=== PATIENT | male | born 1960 | race Caucasian/White ===

== ENCOUNTER 2024-11-17 15:27 | Outpatient (CLI) | payer BC, SELFPAY ==
--- NOTE | ~2024-11-17 | MR_ITS ---
EXAMINATION: MR brain/brain stem wo con DATE: 11/17/2024 16:00 INDICATION: Dizziness after neck extension. TECHNIQUE: Magnetic resonance imaging (MRI) of the brain and brainstem was performed without intraven ous contrast. Sequences included sagittal and axial T1-weighted SE, axial diffusion-weighted FS SE, a xial 3D SWAN, axial T2-weighted FLAIR, and axial T2-weighted FSE. Apparent diffusion coefficient (ADC ) maps were created. COMPARISON: None. FINDINGS: There are no areas of restricted diffusion to suggest acute infarction. No intracranial hemorrhage or abnormal intracranial mass lesion. Mild scattered nonspecific increased T2-weighted signal intensity in the cerebral white matter, predominantly involving the deep and periventricular white matter whic h is within normal limits for age and likely sequela of chronic small vessel ischemic disease. There is linear signal loss in the from peripheral to the paraventricular region of the right right occipit al lobe on the susceptibility weighted images which suggests flow artifact along a developmental veno us anomaly. There are no intraparenchymal signal abnormalities seen on the other pulse sequences. The ventricles are symmetric and normal in size. There are no abnormal extra-axial fluid collections. Fl ow voids are seen in the cerebral arteries on the T2-weighted sequences consistent with their expecte d patency. Visualized orbits and soft tissues are unremarkable. Mild mucoperiosteal thickening at the bilateral ethmoid sinuses. IMPRESSION: 1. No acute intracranial process. 2. A couple tracts of linear low signal on susceptibility weighted imaging extending across the right parieto-occipital region suggestive of flow within a developmental venous anomaly. 3. Mild scattered nonspecific periventricular predominant white matter T2 hyperintensity which is wit hin normal limits for age and likely sequela of chronic small vessel ischemic disease. Reviewed, dictated and finalized at location A. IMPRESSION: 1. No acute intracranial process. 2. A couple tracts of linear low signal on susceptibility weighted imaging exte nding across the right parieto-occipital region suggestive of flow within a dev elopmental venous anomaly. 3. Mild scattered nonspecific periventricular predominant white matter T2 hyper intensity which is within normal limits for age and likely sequela of chronic s mall vessel ischemic disease.
== END 2024-11-17 15:28 | disposition home or self-care (01) ==
LOC: GOSHIMG 15:29
PROVIDERS: PCP Nurse Practitioner Family; Visit Provider Nurse Practitioner Family
DX: R42 Dizziness and giddiness (principal); Z82.0 Family history of epilepsy and other diseases of the nervous system
CPT/HCPCS: 70551